=== PATIENT | female | born 1975 | race American Indian/Alaskan Native ===

== ENCOUNTER 2017-01-07 14:09 | Emergency (ER) | payer MEDICAID ==
[2017-01-07] MEDS ORDERED: NORCO 5/325 PO ONE ×2 (17:59→20:37)
--- NOTE | 2017-01-07 18:03 | Emergency Department Report ---
ED Lower Extremity HPI - General Chief Complaint: Extremity Injury, Lower Stated Complaint: BROKEN ANKLE LEFT LEG Time Seen by Provider: 01/07/17 17:01 Source: patient Mode of arrival: Wheelchair Limitations: No Limitations - History of Present Illness Initial Comments: 41-year-old female past medical history hypertension presents with complaint of left ankle pain status post mechanical trip and fall on sidewalk last night. pt states she was playing with family member, accidentally tripped over tree stump in yard area and felt crunch in ankle. Patient states that her left ankle became very painful and swollen after fall heard snap and ankle felt popping sensation. Patient denies any lacerations no other injury sustained no head trauma. Patient is awake alert and oriented 3 appears uncomfortable due to left ankle pain left ankle visibly swollen and slightly ecchymotic. Patient actively wiggling her toes. MD Complaint: ankle injury Onset/Timin -: days(s) Injury: Ankle: Right, Left (patient has visible left ankle swelling) Type of Injury: inversion Place: street/outdoors Severity: severe Severity scale (0 -10): 8 Improves With: immobilization Worsens With: weight bearing, movement Context: fall Associated Symptoms: snap/pop sensation, unable to bear weight - Related Data Previous Rx's Medication Instructions Recorded Last Taken Type HYDROcodone/APAP 5-325 [[place] 1 each PO Q6HR PRN #20 tablet 01/07/17 Unknown Rx 5/325] Ibuprofen [Motrin] 600 mg PO Q8H PRN #30 tablet 01/07/17 Unknown Rx Allergies Allergy/AdvReac Type Severity Reaction Status Date / Time No Known Allergies Allergy Unverified 01/07/17 15:37 ED Review of Systems ROS: Stated complaint: BROKEN ANKLE LEFT LEG Other details as noted in HPI Constitutional: denies: chills, fever Eyes: denies: eye pain, eye discharge, vision change ENT: denies: ear pain, throat pain Respiratory: denies: cough, shortness of breath, wheezing Cardiovascular: denies: chest pain, palpitations Endocrine: no symptoms reported Gastrointestinal: denies: abdominal pain, nausea, diarrhea Genitourinary: denies: urgency, dysuria, discharge Musculoskeletal: as per HPI. denies: back pain, joint swelling, arthralgia Skin: denies: rash, lesions Neurological: denies: headache, weakness, paresthesias Psychiatric: denies: anxiety, depression Hematological/Lymphatic: denies: easy bleeding, easy bruising ED Past Medical Hx - Past Medical History Hx Hypertension: Yes - Surgical History Additional Surgical History: . TUBAL LIGATION - Social History Smoking Status: Current Every Day Smoker Substance Use Type: Alcohol, Marijuana - Medications Home Medications: Home Medications Medication Instructions Recorded Confirmed Last Taken Type HYDROcodone/APAP 5-325 [[place] 1 each PO Q6HR PRN #20 tablet 01/07/17 Unknown Rx 5/325] Ibuprofen [Motrin] 600 mg PO Q8H PRN #30 tablet 01/07/17 Unknown Rx ED Physical Exam - General Limitations: No Limitations General appearance: alert, in no apparent distress - Head Head exam: Present: atraumatic, normocephalic - Eye Eye exam: Present: normal appearance, PERRL, EOMI - ENT ENT exam: Present: mucous membranes moist - Neck Neck exam: Present: normal inspection - Respiratory Respiratory exam: Present: normal lung sounds bilaterally. Absent: respiratory distress - Cardiovascular Cardiovascular Exam: Present: regular rate, normal rhythm. Absent: systolic murmur, diastolic murmur, rubs, gallop - GI/Abdominal GI/Abdominal exam: Present: soft, normal bowel sounds - Extremities Exam Extremities exam: Present: normal inspection - Expanded Lower Extremity Exam Left Hip exam: Present: normal inspection, full ROM Upper Leg exam: Present: normal inspection, full ROM Knee exam: Present: normal inspection, full ROM Lower Leg exam: Present: tenderness, swelling (tenderness and swelling above left lateral malleolus) Ankle exam: Present: tenderness (tenderness and swelling above the left lateral malleolus distal dorsalis pedis and posterior tibial pulses intact distal sensation intact ankle flexion and extension dorsiflexion and plantarflexion somewhat limited due to pain), swelling Foot/Toe exam: Present: normal inspection, tenderness, tenderness at base of 5th metatarsal Neuro vascular tendon exam: Present: no vascular compromise (distal posterior tibial and dorsalis pedis pulses intact, distal sensation intact range of motion dorsiflexion plantar flexion left ankle limited by pain) Gait: Positive: observed and limited by pain, antalgic, unable to bear weight 1 - Left ankle lateral malleolus swelling and ecchymosis - Back Exam Back exam: Present: normal inspection - Neurological Exam Neurological exam: Present: alert, oriented X3, CN II-XII intact, abnormal gait - Psychiatric Psychiatric exam: Present: normal affect, normal mood - Skin Skin exam: Present: warm, dry, intact, normal color. Absent: rash ED Course Vital Signs 01/07/17 01/07/17 15:33 19:54 Temperature 98.2 F 98.5 F Pulse Rate 81 88 Respiratory 20 20 Rate Blood Pressure 162/117 Blood Pressure 152/99 [Right] O2 Sat by Pulse 100 97 Oximetry ED Lower Extremity MDM - Medical Decision Making A/P: Left sided trimalleolar fracture 1-motrin and norco PRN for pain 2-Case d/w Dr. Vidal and Dr. Jhaveri, as per Dr. Vidal I called [facility] and discussed case w/ ortho attending Dr. Miller. I described mechanism of injury and gave Dr. Miller description of xray report. As ankle appears minimally displaced and is neurovascularly intact with good sensation and distal pulses will make pt non weight bearing, provide crutches and ortho shoe, place in sugartong and posterior splint and discharge with information for Dr. Miller outpt ortho clinic at [phone]. As per Dr. Miller pt to make appointment for f/u this [place]. I stressed the importance of f/u with orthopedics to the patient who expressed understanding of need to for to mitigate and [facility] disability or ankle dysfunction 3- ED dyslexia teacher and I pt placed in combined ankle stirrup/sugartong AND posterior splint. crutches and crutch training given to patient Critical care attestation.: If time is entered above; I have spent that time in minutes in the direct care of this critically ill patient, excluding procedure time. ED Disposition Clinical Impression: Trimalleolar fracture of left ankle Qualifiers: Encounter type: initial encounter Fracture type: closed Qualified Code(s): S82.852A - Displaced trimalleolar fracture of left lower leg, initial encounter for closed fracture Disposition: DISCHARGED TO HOME OR SELFCARE Is pt being admited?: No Does the pt Need Aspirin: No Condition: Stable Instructions: Ankle Fracture (ED), Crutch Instructions (ED) Additional Instructions: [email or web address] Pt advised to call for ortho f/u [facility] at [phone] w/ Dr. Miller orthopedic attending. Pt also provided with secondary ortho f/u in event she cannot see Dr. Miller, referred to Dr. Doran as well. Prescriptions: HYDROcodone/APAP 5-325 [[place] 5/325] 1 each PO Q6HR PRN #20 tablet PRN Reason: Pain Ibuprofen [Motrin] 600 mg PO Q8H PRN #30 tablet PRN Reason: Pain Referrals: CHRIS ROGER MD [Staff Physician] - 3-5 Days BERNARD MILLER MD [Referring] - 3-5 Days [facility] [Provider Group] - 3-5 Days Forms: Work/School Release Form(ED) Time of Disposition: 20:47
--- NOTE | 2017-01-07 18:15 | XRay Report ---
FINAL REPORT EXAM: XR TIBIA FIBULA 2V LT HISTORY: s/p fall ? fracture lower tibia region TECHNIQUE: Tibia-fibula left two views PRIORS: None. FINDINGS: There is acute transverse fracture through the medial malleolus. There is vertical fracture through the posterior distal tibia There is acute oblique fracture of the distal fibula. No proximal tibia or fibular fractures are identified. IMPRESSION: Acute trimalleolar fracture at the ankle further described on today's ankle series
--- NOTE | 2017-01-07 18:20 | XRay Report ---
FINAL REPORT EXAM: XR ANKLE 3 LT HISTORY: pain left ankle TECHNIQUE: Three view ankle left PRIORS: None. FINDINGS: There is acute transverse fracture with minimal displacement through the medial malleolus. There is acute vertical fracture through the posterior tibia. Oblique fracture is present through the distal fibula there is mild lateral widening of the ankle joint. No additional acute fractures are identified. Remaining joint spaces are within normal limits. IMPRESSION: Acute trimalleolar fracture at the ankle
[2017-01-07 19:56] VITALS: BP 152/99
--- NOTE | 2017-01-08 08:36 | XRay Report ---
LEFT FOOT: The bony architecture is intact. Bony alignment is normal. No soft tissue abnormalities are seen. The joint spaces appear preserved. IMPRESSION: Normal left foot. Comment: See separate report covering ankle fractures.
== END 2017-01-07 21:22 | disposition home or self-care (01) ==
LOC: ED 14:09
DX: S82.852A Displaced trimalleolar fracture of left lower leg, initial encounter for closed fracture (principal); I10 Essential (primary) hypertension; F12.10 Cannabis abuse, uncomplicated; F17.200 Nicotine dependence, unspecified, uncomplicated; W01.0XXA Fall on same level from slipping, tripping and stumbling without subsequent striking against object, initial encounter; Y93.9 Activity, unspecified; Y99.9 Unspecified external cause status; Y92.89 Other specified places as the place of occurrence of the external cause